=== PATIENT | female | born 1965 | race Caucasian/White ===

== ENCOUNTER 2022-04-16 16:21 | Emergency (ER) | payer BC, OTHER ==
[2022-04-16] MEDS ORDERED: predniSONE 20 MG TAB ONE (17:17)
== END 2022-04-16 17:22 | disposition home or self-care (01) ==
LOC: BURERS 16:21
DX: B34.9 Viral infection, unspecified (principal); I10 Essential (primary) hypertension; F17.210 Nicotine dependence, cigarettes, uncomplicated
CPT/HCPCS: 71046; 87804; J7512

== ENCOUNTER 2024-02-18 18:28 | Emergency (ER) | payer OTHER ==
[~2024-02-18 18:28] MED LIST: Iopamidol 370 76% 100 ML VIAL ONE
[2024-02-18 18:55] LABS: #Lymphocytes 0.7 thou/uL (1.20-3.40); #Monocytes 0.5 thou/uL (0.11-0.59); #Neutrophils 4.2 thou/uL (1.40-6.50); %Basophils 0.7 % (0.0-1.0); %Eosinophils 0.3 % (0.0-10.0); %Lymphocytes 12.1 % (21.0-51.0); %Monocytes 9.7 % (0.0-10.0); %Neutrophils 77.2 % (42.0-75.0); Hematocrit 41.8 % (36.0-47.0); Hemoglobin 14.1 g/dL (12.0-16.0); Mean Corpuscular HGB CONC 33.8 g/dL (32.0-36.0); Mean Corpuscular Hemoglobin 30.4 pg (27.0-31.0); Mean Platelet Volume 7.1 fL (7.4-10.4); Platelet Count 195 10x3/uL (130-400); Red Blood Cell (RBC) Count 4.65 mill/uL (4.20-5.40); White Blood Cell (WBC) Count 5.4 10x3/uL (4.8-10.8)
[2024-02-18 19:14] LABS: ALT (SGPT) 16 U/L (8-55); AST (SGOT) 15 U/L (5-34); Albumin 3.7 g/dL (3.5-5.0); Alkaline Phosphatase 105 U/L (40-110); Anion Gap 15 mmol/L (10-20); BUN (Urea Nitrogen) 12 mg/dL (9.8-20.1); Bilirubin, Total 0.4 mg/dL (0.2-1.2); Calc. Creatinine Clearance 0 mL/min (70-130); Carbon Dioxide 20 mmol/L (22-29); Chloride 107 mmol/L (98-107); Estimated GFR 75; Globulin 2.9 g/dL (2.4-3.5); Glucose 112 mg/dL (70-105); Lipase 13 U/L (8-78); Protein, Total 6.6 g/dL (6.0-8.3); Sodium 138 mmol/L (136-145); Troponin I Less than 0.010 ng/mL (< 0.028)
[2024-02-18] MEDS ORDERED: Ipratropium/Albuterol 3 ML NEB ONE (19:21)
[2024-02-18] MEDS ORDERED: Ondansetron PF 4 MG/2 ML Vial ONE (19:21)
[2024-02-18] MEDS ORDERED: Aspirin Chewable 81 MG TAB ONE (19:22)
[2024-02-18] MEDS ORDERED: Azithromycin 250 MG TAB ONE (19:49)
[2024-02-18] MEDS ORDERED: Oseltamivir 75 MG CAP ONE (21:09)
== END 2024-02-18 21:30 | disposition home or self-care (01) ==
LOC: BURERS 18:28
DX: J10.00 Influenza due to other identified influenza virus with unspecified type of pneumonia (principal); I10 Essential (primary) hypertension; F17.200 Nicotine dependence, unspecified, uncomplicated
CPT/HCPCS: 71045; 71275; 74177; 80053; 83690; 83880; 84484; 85025; 85379; 87428; 93005; 94640; 96374; J2405; J7620; Q9967